=== PATIENT | female | born 1965 | race Caucasian/White ===

== ENCOUNTER 2017-12-09 12:43 | Emergency (ER) | payer OTHER ==
[~2017-12-09] VITALS: Ht 157.5 cm; Wt 81.0 kg
[~2017-12-09 12:43] MED LIST: CYCL5TAB PO; IBUP800T23 PO
[2017-12-09 13:01] VITALS: BP 149/74; PULSE 74; RESP 16; TEMP 97.9; O2SAT 96
[2017-12-09] MEDS ORDERED: ACETAMINOPHEN/HYDROcodone 325 MG/5 MG TAB PO ONE (14:15)
[2017-12-09] MEDS ORDERED: TETANUS/DIPHTHERIA TOXOID ADULT 0.5 ML VIAL IM ONE (14:15)
--- NOTE | 2017-12-09 14:51 | RADRPT ---
EXAM DATE/TIME: 12/09/2017 14:35 [facility] COMPARISON: No previous studies available for comparison. INDICATIONS : Fell and hit head. RADIATION DOSE: 59.70 CTDIvol (mGy) MEDICAL HISTORY : None SURGICAL HISTORY : section. Uterine ablation. ENCOUNTER: Initial ACUITY: 1 day PAIN SCALE: 5/10 LOCATION: cranial TECHNIQUE: Multiple contiguous axial images were obtained of the head. Using automated exposure control and adj ustment of the mA and/or kV according to patient size, radiation dose was kept as low as reasonably a chievable to obtain optimal diagnostic quality images. DICOM format image data is available electro nically for review and comparison. FINDINGS: CEREBRUM: The ventricles are normal for age. No evidence of midline shift, mass lesion, hemorrhage or acute in farction. No extra-axial fluid collections are seen. POSTERIOR FOSSA: The cerebellum and brainstem are intact. The 4th ventricle is midline. The cerebellopontine angle i s unremarkable. EXTRACRANIAL: The visualized portion of the orbits is intact. SKULL: The calvaria is intact. No evidence of skull fracture. CONCLUSION: No acute intracranial disease. Rehan Ruby MD on December 09, 2017 at 14:49 Board Certified Radiologist. This report was verified electronically.
--- NOTE | 2017-12-09 15:04 | RADRPT ---
EXAM DATE/TIME: 12/09/2017 14:11 [facility] COMPARISON: No previous studies available for comparison. INDICATIONS : Left elbow pain. Patient fell today. MEDICAL HISTORY : None. SURGICAL HISTORY : None. ENCOUNTER: Initial ACUITY: 1 day PAIN SCORE: 4/10 LOCATION: Left posterior elbow. FINDINGS: AP and lateral views of the left elbow demonstrate no fracture or dislocation. No joint effusion is v isualized. No soft tissue abnormality or radiopaque foreign body is identified. CONCLUSION: No acute abnormality is identified. Tramaine Stokes MD on December 09, 2017 at 15:03 Board Certified Radiologist. This report was verified electronically.
--- NOTE | 2017-12-09 15:05 | RADRPT ---
EXAM DATE/TIME: 12/09/2017 14:11 [facility] COMPARISON: No previous studies available for comparison. INDICATIONS : Left hand pain after falling today. MEDICAL HISTORY : None. SURGICAL HISTORY : None. ENCOUNTER: Initial ACUITY: 1 day PAIN SCORE: 4/10 LOCATION: Left hand. FINDINGS: 2 views of the left hand demonstrate no fracture or dislocation. Mineralization is within normal limi ts and there is no significant arthropathy. No soft tissue abnormality or radiopaque foreign body is identified. CONCLUSION: No acute left hand abnormality is identified. Tramaine Stokes MD on December 09, 2017 at 15:03 Board Certified Radiologist. This report was verified electronically.
--- NOTE | 2017-12-09 15:07 | RADRPT ---
EXAM DATE/TIME: 12/09/2017 14:11 [facility] COMPARISON: No previous studies available for comparison. INDICATIONS : Left side chest pain. Patient fell today. MEDICAL HISTORY : None. SURGICAL HISTORY : None. ENCOUNTER: Initial ACUITY: 1 day PAIN SCORE: 4/10 LOCATION: Left lateral chest. FINDINGS: 6 views of the left ribs and chest demonstrate no rib fracture or acute abnormality. No pneumothorax is visualized. The surrounding structures demonstrate no acute finding. CONCLUSION: No rib fracture or acute abnormality is identified. Tramaine Stokes MD on December 09, 2017 at 15:04 Board Certified Radiologist. This report was verified electronically.
[2017-12-09] MEDS ORDERED: MUPI2OIN TOPICAL (15:13)
[2017-12-09] MEDS ORDERED: ROBA500T PO (15:13)
[2017-12-09] MEDS ORDERED: DICL75TA PO (15:13)
--- NOTE | 2017-12-09 15:19 | PD ---
HPI Chief Complaint: Fall Time Seen by Provider: 13:43 Travel History International Travel<30 days: No Contact w/Intl Traveler<30days: No Traveled to known affect area: No History of Present Illness HPI 52-year-old female that presents to the ED for evaluation of fall today. Per patient she had a mechanical fall walking her dog today. Per patient she saw a snake and tried to stay away from the snake and check simply tripped and into her left side. She hasn't had. She has pain mainly on the left ribs, left elbow, left hand, left head. She does have abrasions and bruises to the left knee as well as to the right foot able to ambulate with minimal discomfort. She denies any prior injuries to this area. Per patient her pain is 3 out of 10. She did not lose consciousness. She does not take any blood thinners. Most of the pain appears to be in the ribs. Gets worse with deep breaths. No other injuries reported. No back or neck pain. Injury occurred this morning. Patient unclear of her last tetanus booster. She does have abrasions on her skin. Multiple allergies to different medications. PFSH Past Medical History Medical other: Yes (POLIO A CHILD) Tetanus Vaccination: > 5 Years Influenza Vaccination: No ?: Not Past Surgical History Section: Yes Other Surgery: Yes (UTERINE ABLASION) Social History Alcohol Use: Yes (OCCASIONAL) Tobacco Use: Yes (OCCASIONAL) Substance Use: No Allergies-Medications (Allergen,Severity, Reaction): Coded Allergies: azithromycin (Verified Allergy, Mild, rash, 12/09/17) celecoxib (Verified Allergy, Mild, rash, 12/09/17) Uncoded Allergies: zyban (Allergy, Mild, rash, 09/02/15) Reported Meds & Prescriptions Reported Meds & Active Scripts Active Mupirocin Topical (Mupirocin) 2 % Oint 1 Applic TOPICAL BID Robaxin (Methocarbamol) 500 Mg Tab 500 Mg PO TID Diclofenac Sodium DR (Diclofenac Sodium) 75 Mg Tabdr 75 Mg PO BID PRN Review of Systems Except as stated in HPI: all other systems reviewed are Neg Physical Exam Narrative GENERAL: SKIN: Warm and dry. HEAD: Atraumatic. Normocephalic. EYES: Pupils equal and round. No scleral icterus. No injection or drainage. ENT: No nasal bleeding or discharge. Mucous membranes pink and moist. Tongue is midline. No uvula deviation. NECK: Trachea midline. No JVD. CARDIOVASCULAR: Regular rate and rhythm. RESPIRATORY: No accessory muscle use. Clear to auscultation. Breath sounds equal bilaterally. GASTROINTESTINAL: Abdomen soft, non-tender, nondistended. Hepatic and splenic margins not palpable. MUSCULOSKELETAL: Extremities without clubbing, cyanosis, or edema. No obvious deformities. Full range of motion of the upper and lower extremities bilaterally. Patient does have abrasions and bruises noted on the left elbow, left hand, left knee as well as the right foot. Patient also has an abrasion/ bruise to the left forehead. Able to move the upper and lower extremities with no pain. No obvious deformities noted. 2+ pulses bilaterally. No lumbar, thoracic, cervical spine tenderness to palpation. Patient does have reproducible pain on the left rib cage. Gets worse with deep breaths. Neurovascular intact. NEUROLOGICAL: Awake and alert. No obvious cranial nerve deficits. Motor grossly within normal limits. Five out of 5 muscle strength in the arms and legs. Normal speech. PSYCHIATRIC: Appropriate mood and affect; insight and judgment normal. Data Data Last Documented VS Vital Signs Date Time Temp Pulse Resp B/P (MAP) Pulse Ox O2 Delivery O2 Flow Rate FiO2 12/09/17 13:01 97.9 74 16 149/74 (99) [address] Brain W/O Iv Contrast(Rout) (12/09/17 14:05) Elbow, Limited (Ap&Lat) (12/09/17 14:05) Hand, Limited (2vws) (12/09/17 14:05) Ice/Cold Pack (12/09/17 14:05) Ribs, Uni (W/Exp Cxr-Min 3vw) (12/09/17 14:05) Acetamin-Hydrocod 325-5 Mg (Hardin 5-325 (12/09/17 14:15) Tetanus/Diphtheria Tox Adult (Tetanus/Di (12/09/17 14:15) Ed Discharge Order (12/09/17 15:12) [facility] Medical Decision Making Medical Screen Exam Complete: Yes Emergency Medical Condition: Yes Medical Record Reviewed: Yes Interpretation(s) X-ray of the hand was negative for acute disease. X-ray of the elbow was negative for acute disease. X-ray of the ribs do not show no sign of bony injury. CT of the head was negative for acute disease as well. Differential Diagnosis Fall versus bruises versus contusions versus fractures versus head injury Narrative Course 52-year-old female that presents to the ED for evaluation of fall. Patient was properly examined and was found to have signs and symptoms concerning for bony injuries and head injury. Imaging was ordered. Patient was given tetanus booster as well as Lortab for pain here. Imaging was negative for acute disease. Patient was reassured. This time like the contusions and bruises. Patient does have some superficial abrasions to the right foot as well as to the knee and elbow. We'll give the presyncope and to cover for bacterial infection. Patient was given a prescription for Robaxin and diclofenac sodium For pain. Told to use as needed. Ice or warm compresses. Follow with PCP. See ED worsening symptoms. Diagnosis Primary Impression: Fall Qualified Codes: W19.XXXA - Unspecified fall, initial encounter Additional Impressions: Head injury, acute Qualified Codes: S09.90XA - Unspecified injury of head, initial encounter Contusion of rib on left side Qualified Codes: S20.212A - Contusion of left front wall of thorax, initial encounter Multiple bruises Abrasions of multiple sites Patient Instructions: General Instructions, Narcotic given in the ED Additional Instructions: Take medications as prescribed. Follow-up with PCP. See ED for any worsening symptoms. Do not drink or drive while taking pain medication. Apply ice or heat as needed for pain Med/Other Pt SpecificInfo: Prescription(s) given, Wound Care Scripts Mupirocin Topical (Mupirocin Topical) 2 % Oint 1 APPLIC TOPICAL BID for Mgmt Bacterial Infection, #1 TUBE 0 Refills Prov: Evelin Watson MD 12/09/17 Methocarbamol (Robaxin) 500 Mg Tab 500 MG PO TID for Muscle Spasm, #15 TAB 0 Refills Prov: Evelin Watson MD 12/09/[address] (Diclofenac Sodium DR) 75 Mg Tabdr 75 MG PO BID Y for PAIN SCALE 1 TO 10, #20 TAB 0 Refills Prov: Evelin Watson MD 12/09/17 Disposition: 01 DISCHARGE HOME Condition: Stable Kirit Kinsey Dec 09, 2017 15:19
== END 2017-12-09 15:40 | disposition home or self-care (01) ==
LOC: PHED 12:43 → PHEFT 15:40
DX: S09.90XA Unspecified injury of head, initial encounter (principal); S20.212A Contusion of left front wall of thorax, initial encounter; S50.312A Abrasion of left elbow, initial encounter; S80.212A Abrasion, left knee, initial encounter; S90.811A Abrasion, right foot, initial encounter; W01.0XXA Fall on same level from slipping, tripping and stumbling without subsequent striking against object, initial encounter; Y93.K1 Activity, walking an animal; Z86.12 Personal history of poliomyelitis; Z23 Encounter for immunization
CPT/HCPCS: 70450; 71101; 73070; 73120; 90471; 90714